=== PATIENT | male | born 1990 ===

== ENCOUNTER 2018-03-05 14:18 | Emergency (ER) | payer OTHER ==
[~2018-03-05] VITALS: Ht 170 cm; Wt 82.0 kg
[2018-03-05 14:25] VITALS: BP 116/57; TEMP 98.3
[2018-03-05 15:42] VITALS: PULSE 56
== END 2018-03-05 15:42 | disposition home or self-care (01) ==
LOC: COL.ER 14:18
DX: S93.402A Sprain of unspecified ligament of left ankle, initial encounter (principal); X50.0XXA Overexertion from strenuous movement or load, initial encounter; Y92.322 Soccer field as the place of occurrence of the external cause; Y93.66 Activity, soccer